=== PATIENT | female | born 1960 | race Hispanic/Latino ===

== ENCOUNTER 2017-07-22 15:44 | Outpatient (CLI) | payer BC ==
--- NOTE | 2017-07-22 16:22 | Mammography Report ---
BILATERAL DIGITAL SCREENING MAMMOGRAM with CAD: 07/22/17 15:44:00 CLINICAL: Routine screening. COMPARISON:04/20/16 FINDINGS: The breasts are almost entirely fatty.Bilateral benign calcifications. No mass, architectural distortion or suspicious calcifications. IMPRESSION: No mammographic evidence of malignancy. BI-RADS CATEGORY: 2 -- Benign RECOMMENDATION: Routine mammographic screening in one year. COMMENT: Patient follow-up letters are generated by our [employer] application.
== END 2017-07-22 15:45 | disposition home or self-care (01) ==
LOC: SPVWC 15:44
PROVIDERS: ATTEND Family Medicine
DX: Z12.31 Encounter for screening mammogram for malignant neoplasm of breast (principal)
CPT/HCPCS: 77067; G0202

== ENCOUNTER 2019-02-08 15:58 | Outpatient (CLI) | payer BC ==
--- NOTE | 2019-02-08 16:26 | Mammography Report ---
BILATERAL MAMMOGRAM: FINDINGS: The breasts are almost entirely fat (<25% glandular). No mass, distortion, suspicious calcification, or skin change is seen. There is no significant change compared to prior exam of July 2017. CAD was utilized. IMPRESSION: Negative mammogram. There is no mammographic evidence of malignancy. RECOMMENDATION: Follow-up per ACS guidelines. BI-RADS CATEGORY: 1 = Negative ACR BI-RADS MAMMOGRAPHIC CODES: 0 = Needs additional imaging evaluation; 1 = Negative; 2 = Benign; 3 = Probably benign; 4 = Suspicious; 5 = Malignant; 6 = Known biopsy-proven malignancy COMMENT: 1. Dense breast tissue, i.e., adenosis, fibrocystic changes, etc., may obscure an underlying neoplasm. 2. Approximately 10% of cancers are not detected with mammography. 3. A negative mammography report should not delay biopsy if a clinically suspicious mass is present. COMMENT: Patient follow-up letters are generated in [employer].
== END 2019-02-08 15:59 | disposition home or self-care (01) ==
LOC: SPVWC 15:58
PROVIDERS: ATTEND Internal Medicine
DX: Z12.31 Encounter for screening mammogram for malignant neoplasm of breast (principal)
CPT/HCPCS: 77067

== ENCOUNTER 2020-11-03 11:12 | Outpatient (CLI) | payer BC ==
--- NOTE | 2020-11-03 16:11 | Mammography Report ---
DIGITAL SCREENING MAMMOGRAM WITH CAD, 11/03/2020 CLINICAL INFORMATION / INDICATION: Routine screening mammography. SCREENING MAMMOGRAM TECHNIQUE: Digital bilateral 2D mammography was obtained in the craniocaudal and mediolateral obliqu e projections. This examination was interpreted with the benefit of Computer-Aided Detection analysis . COMPARISON: 02/08/2019, 07/22/2017, 04/20/2016 FINDINGS: Breast Density: The breasts are almost entirely fatty. No dominant mass, suspicious calcifications, or architectural distortion in the left breast. There is a new grouping of calcifications in the upper outer right breast middle depth which will req uire additional evaluation. IMPRESSION: New right breast calcifications as described which will require additional evaluation wit h magnification views. Follow up recommendation: Special View: Mag BI-RADS Category 0: Incomplete. Needs additional imaging evaluation and/or prior mammograms for ainsley melendez. A "normal" or negative report should not discourage follow up or biopsy of a clinically significant f inding. A written summary of these findings will be mailed to the patient. The patient will be entered into a mammography reporting system which will generate a reminder letter for the patient's next appointmen t at the appropriate interval. The [employer] recommends yearly mammograms starting at age 40 and continuing as l radha as a woman is in good health. Breast MRI is recommended for women with an approximate 20-25% or greater lifetime risk of breast cancer, including women with a strong family history of breast or ova rivas cancer or who have been treated for Hodgkin's disease. Signer Name: Kathy Sierra MD Signed: 11/03/2020 4:07 PM Workstation Name: [id number]
== END 2020-11-03 11:13 | disposition home or self-care (01) ==
LOC: SPVWC 11:12
PROVIDERS: ATTEND Family Medicine
DX: Z12.31 Encounter for screening mammogram for malignant neoplasm of breast (principal); R92.1 Mammographic calcification found on diagnostic imaging of breast
CPT/HCPCS: 77067

== ENCOUNTER 2020-12-11 14:57 | Outpatient (CLI) | payer BC ==
--- NOTE | 2020-12-11 16:15 | Mammography Report ---
DIGITAL DIAGNOSTIC MAMMOGRAM WITH CAD CONVENTIONAL, 12/11/2020 CLINICAL INFORMATION / INDICATION: Abnormal screening mammogram TECHNIQUE: Digital right mammographic imaging was performed. Magnification views were obtained. Dunn ential views were also performed. This examination was interpreted with the benefit of Computer-aided Detection analysis. COMPARISON: Screening mammogram 11/03/2020 FINDINGS: Breast Density: The breasts are almost entirely fatty. Multiple scattered benign calcifications are again noted throughout the right breast. In the upper ou ter right breast the grouped microcalcifications of interest on magnification views have rounded nico gn type pathology. These are located quite superficially though not definitely within the skin on melendez gential view. IMPRESSION: Probably benign calcifications Follow up recommendation: Follow-up right mammogram with magnification views in 6 months BI-RADS Category 3: Probably Benign. Followup in 6 months. A "normal" or negative report should not discourage follow up or biopsy of a clinically significant f inding. A written summary of these findings will be mailed to the patient. The patient will be entered into a mammography reporting system which will generate a reminder letter for the patient's next appointmen t at the appropriate interval. According to the [employer], yearly mammograms are recommended starting at age 40 and continuing as long as a woman is in good health. Breast MRI is recommended for women with an erin roximately 20-25% or greater lifetime risk of breast cancer, including women with a strong family his tory of breast or ovarian cancer and women who have been treated for Hodgkin's disease. Signer Name: Víctor Hale MD Signed: 12/11/2020 4:10 PM Workstation Name: [id number]
== END 2020-12-11 14:58 | disposition home or self-care (01) ==
LOC: SPVWC 14:57
PROVIDERS: ATTEND Family Medicine
DX: R92.8 Other abnormal and inconclusive findings on diagnostic imaging of breast (principal)